=== PATIENT | male | born 1985 | race Caucasian/White ===

== ENCOUNTER 2022-03-13 10:04 | Day surgery (SDC) | payer MEDICAID ==
[~2022-03-13] VITALS: Ht 188 cm; Wt 97.7 kg
[~2022-03-13 10:04] MED LIST: RINGERS SOLUTION,LACTATED 1,000 ML IV ONE
[2022-03-13] MEDS ORDERED: DEXAMETHASONE SOD PHOS 4 MG/ML VIAL IVP ONE (10:05)
[2022-03-13] MEDS ORDERED: FentaNYL CITRATE PF 100 MCG/2 ML VIAL IVP ONE (10:05)
[2022-03-13] MEDS ORDERED: LIDOCAINE/PF 2% 5 ML VIAL IM ONE (10:05)
[2022-03-13] MEDS ORDERED: KETOROLAC TROMETHAMINE 60 MG/2 ML VIAL IM ONE (10:05)
[2022-03-13] MEDS ORDERED: HYDROmorphone 2 MG/ML VIAL IVP ONE ×3 (10:05→16:30)
[2022-03-13] MEDS ORDERED: PROPOFOL 1% 20 ML VIAL IVP ONE (10:05)
[2022-03-13] MEDS ORDERED: SUCCINYLCHOLINE CHLORIDE 20 MG/ML 10 ML VIAL IVP ONE (10:05)
[2022-03-13] MEDS ORDERED: ONDANSETRON HCL 4 MG/2 ML VIAL IVP ONE ×2 (10:05→15:30)
[2022-03-13] MEDS ORDERED: MIDAZOLAM HCL 2 MG/2 ML VIAL IVP ONE (10:05)
[2022-03-13] MEDS ORDERED: RINGERS SOLUTION,LACTATED 1,000 ML IV ONE (10:06)
[2022-03-13 10:12] LABS: COVID AG,FIA SOURCE NASAL SWAB
[2022-03-13] MEDS ORDERED: ZOLP10TA8 PO (10:21)
[2022-03-13] MEDS ORDERED: BUPIVACAINE LIPOSOME/PF 1.3%-13.3MG/ML SUSPENSION 20 ML VIAL INJ ONE (10:45)
[2022-03-13] MEDS ORDERED: BUPIVACAINE HCL/PF 0.25% 30 ML VIAL ONE (10:49)
[2022-03-13] MEDS ORDERED: MUPIROCIN CALCIUM 2% 22 GM OINTMENT ONE (10:49)
[2022-03-13 11:01] LABS: BASOPHILS % (AUTO) 0.6 % (0.0-2.0); EOSINOPHILS % (AUTO) 3.5 % (1.0-6.0); HEMATOCRIT 41.1 % (41-53); HEMOGLOBIN 13.5 g/dL (13.5-17.5); LYMPHOCYTES # (AUTO) 1.5 K/uL (1.0-4.8); MEAN CORPUSCULAR HGB CONC 32.9 G/dL (31.0-37.0); MEAN CORPUSCULAR VOLUME 79 fL (80-100); MONOCYTES # (AUTO) 0.4 K/uL (0.1-1.0); MONOCYTES % (AUTO) 6.9 % (2.0-9.0); NEUTROPHILS # (AUTO) 4.2 K/uL (1.8-7.7); PLATELET COUNT (AUTO) 259 K/uL (150-450); RED CELL DISTRIBUTION WIDTH 13.6 % (11.5-14.5)
[2022-03-13 11:09] LABS: ANION GAP 11 mmol/L (8-16); CARBON DIOXIDE 26 mmol/L (22-29); CHLORIDE 102 mmol/L (98-107); CREATININE 0.95 mg/dL (0.60-1.30); GLOMERULAR FILTR. RATE CALC > 60 mL/min (>60); GLUCOSE,RANDOM 107 mg/dL (70-110); POTASSIUM 3.9 mmol/L (3.5-5.1); SODIUM SERUM 139 mmol/L (136-145); UREA NITROGEN, BLOOD 21 mg/dL (7-18)
[2022-03-13 11:13] LABS: PROTHROMBIN TIME 11.1 SEC (9.4-11.6)
[2022-03-13 11:14] LABS: ALANINE AMINOTRANSFERASE 95 U/L (12-78); ALKALINE PHOSPHATASE 41 U/L (46-116); ASPARTATE AMINOTRANSFERASE 41 U/L (15-37); BILIRUBIN,TOTAL 0.5 mg/dL (0.1-1.0)
[2022-03-13 11:15] LABS: TOTAL PROTEIN, SERUM 7.2 g/dL (6.4-8.2)
[2022-03-13] MEDS ORDERED: ACETAMINOPHEN 1000 MG/ISO-OSM 100 ML IV ONE (11:37)
[2022-03-13] MEDS ORDERED: MEPERIDINE-PF 25 MG/ML VIAL IVP PRN (14:30)
[2022-03-13] MEDS ORDERED: MORPHINE SULFATE/PF 0.5 MG/ML 10 ML AMP IVP ONE (14:31)
[2022-03-13] MEDS ORDERED: FentaNYL CITRATE PF 100 MCG/2 ML VIAL ONE ×2 (14:50→15:15)
[2022-03-13] MEDS: FentaNYL CITRATE PF 100 MCG/2 ML VIAL IVP PRN ×4 (14:54→15:33)
[2022-03-13] MEDS ORDERED: HYDROmorphone 2 MG/ML VIAL ONE ×3 (14:56→16:21)
[2022-03-13] MEDS: HYDROmorphone 2 MG/ML VIAL IVP PRN ×5 (14:59→15:47)
[2022-03-13] MEDS ORDERED: ONDANSETRON HCL 4 MG/2 ML VIAL ONE (15:45)
[2022-03-13] MEDS ORDERED: OXYGEN THERAPY IH SCH (20:00)
== END 2022-03-13 17:10 | disposition home or self-care (01) ==
LOC: SURGERY 10:04
PROVIDERS: ATTEND Specialist
DX: S83.211A Bucket-handle tear of medial meniscus, current injury, right knee, initial encounter (principal); X58.XXXA Exposure to other specified factors, initial encounter; Y93.89 Activity, other specified; Y92.89 Other specified places as the place of occurrence of the external cause; Y99.8 Other external cause status; M94.261 Chondromalacia, right knee; Z79.01 Long term (current) use of anticoagulants; Z79.899 Other long term (current) drug therapy; G89.29 Other chronic pain
CPT/HCPCS: 29882; 29888; 36415; 80053; 85025; 85610; 85730; 87426; 93005; C1713; C9803; J0131; J0330; J0690; J1100; J1170; J1885; J2250; J2274; J2405; J2704; J3010; J3490; J7120; C9290